=== PATIENT | female | born 1955 | race Caucasian/White ===

== ENCOUNTER 2022-08-06 17:15 | Emergency (ER) | payer MEDICARE, OTHER ==
[2022-08-06] MEDS ORDERED: ORPHENADRINE 60 MG/2 ML (NORFLEX) AMP (ED ONLY) IVP STA (17:29)
[2022-08-06] MEDS ORDERED: KETOROLAC 30 MG/ML VIAL IVP STA (17:29)
[2022-08-06] MEDS ORDERED: ASPIRIN 81 MG CHEW (CHILDREN'S ASA) PO ONE (17:30)
--- NOTE | 2022-08-06 17:38 | ED General ---
General Chief Complaint: General Problems/Pain Stated Complaint: NECK/FACIAL PAIN; CHEST PAIN Nursing Triage Note: Patient has presented to ER with cc of left side neck pain, feels "faint", feels dizzy. Started about 1130 this morning while at work. Source of Information: Patient History of Present Illness Date Seen by Provider: Aug 06, 2022 Time Seen by Provider: 17:18 Initial Comments 67-year-old female presenting with complaints of pain in her left side of her neck, left posterior shoulder and, headache. She states this started around 1130 this morning and has been constant. She was at work stocking shelves at [employer] and started having pain to the left side of her neck and feeling dizzy and like she was going to faint. She states that that improved when she sat down and drink some water. However then when she got back up to try working again she became dizzy, lightheaded and felt faint again. She had gone home and was feeling tired so she took a nap for 2 hours. She states that she never does anything like that. She was recently started on amlodipine for blood pressure on Saturday. She reports calling her doctor in [place] and they told her to get to the emergency department right away. She denies any numbness or weakness in her arms or legs. She has no change in her vision. No difficulty speaking or swallowing. She denies any direct trauma to her neck or head. She has not taken anything for pain prior to arrival. Timing/Duration: 4-6 Hours Severity: Severe Modifying Factors: worse with Movement Associated Systoms: No Chest Pain, No Cough, No Diaphoresis, No Fever/Chills; Headaches; No Loss of Appetite, No Malaise, No Nausea/Vomiting, No Rash, No Seizure; Shortness of Air; No Syncope, No Weakness Allergies and Home Medications Allergies Coded Allergies: codeine (Verified Allergy, Unknown, 08/06/22) penicillin V (Verified Allergy, Unknown, 08/06/22) Patient Home Medication List Home Medication List Reviewed: Yes Ibuprofen (Ibuprofen) 600 Mg Tablet, 600 MG PO Q8H PRN for pain/inflammation Prescribed by: SUDHAKAR OLIVIER on 08/06/221843 Methocarbamol (Methocarbamol) 750 Mg Tablet, 750 MG PO Q8H PRN for muscle spasm/pain Prescribed by: SUDHAKAR OLIVIER on 08/06/221843 Review of Systems Review of Systems Constitutional: No chills, No diaphoresis; dizziness; No fever EENTM: no symptoms reported Respiratory: short of breath; No stridor, No wheezing Cardiovascular: No chest pain, No palpitations Gastrointestinal: No abdominal pain, No nausea, No vomiting Genitourinary: No dysuria Musculoskeletal: see HPI Skin: No change in color, No rash Psychiatric/Neurological: Anxiety, Headache; Denies Numbness, Denies P aresthesia, Denies Weakness Hematologic/Lymphatic: Denies Blood Clots Past [id number]-[id number] Hx Patient Social History Tobacco Use?: No Use of E-Cig and/or Vaping dev: No Substance use?: No Alcohol Use?: No Past Medical History Surgery/Hospitalization HX: hypertension, osteoarthritis, constipation, low vitamin D Physical Exam Vital Signs Vital Signs - First Documented 08/06/22 08/06/22 17:24 18:47 Temp 36.2 Pulse 79 Resp 18 B/P (MAP) 88/ Pulse Ox 97 O2 Delivery Room Air Capillary Refill : Height, Weight, BMI Height: '" Weight: lbs. oz. kg; BMI Method: General Appearance: Anxious (tearful at times complaining of pain to left neck/shoulder) HEENT: PERRL/EOMI, Normal ENT Inspection, Pharynx Normal, Moist Mucous Membranes Neck: Full Range of Motion, Supple, Tender Lateral (left side of neck tender to palpation. no pain over vertebral bodies) Respiratory: Chest Non Tender, Lungs Clear, Normal Breath Sounds, No Accessory Muscle Use, No Respiratory Distress Cardiovascular: Regular Rate, Rhythm, No Murmur, Normal Peripheral Pulses Gastrointestinal: Normal Bowel Sounds, No Pulsatile Mass, Non Tender, Soft Rectal: Deferred Extremity: Normal Capillary Refill, Normal Inspection, Normal Range of Motion, Non Tender, No Calf Tenderness, No Pedal Edema Neurologic/Psychiatric: Alert, Oriented x3, No Motor/Sensory Deficits, hand ii thermal cutter II- XII Norm as Tested, Other (anxious) Skin: Normal Color, Warm/Dry; No Rash Progress/Results/Core Measures Suspected Sepsis SIRS Temperature: Pulse: 79 Respiratory Rate: Laboratory Tests 08/06/22 17:21: White Blood Count 8.5 Blood Pressure 88 / Mean: Laboratory Tests 08/06/22 17:21: Creatinine 0.97, INR Comment 1.0, Platelet Count 228, Total Bilirubin 0.4 Results/Orders Lab Results Laboratory Tests Test 08/06/22 17:21 Range/Units White Blood Count 8.5 4.3-11.0 10^3/uL Red Blood Count 4.88 3.80-5.11 10^6/uL Hemoglobin 15.0 11.5-16.0 g/dL Hematocrit 45 35-52 % Mean Corpuscular Volume 91 80-99 fL Mean Corpuscular Hemoglobin 31 25-34 pg Mean Corpuscular Hemoglobin Concent 34 32-36 g/dL Red Cell Distribution Width 12.4 10.0-14.5 % Platelet Count 228 130-400 10^3/uL Mean Platelet Volume 9.8 9.0-12.2 fL Immature Granulocyte % (Auto) 1 % Neutrophils (%) (Auto) 59 42-75 % Lymphocytes (%) (Auto) 31 12-44 % Monocytes (%) (Auto) 8 0-12 % Eosinophils (%) (Auto) 1 0-10 % Basophils (%) (Auto) 1 0-10 % Neutrophils # (Auto) 5.0 1.8-7.8 10^3/uL Lymphocytes # (Auto) 2.7 1.0-4.0 10^3/uL Monocytes # (Auto) 0.6 0.0-1.0 10^3/uL Eosinophils # (Auto) 0.1 0.0-0.3 10^3/uL Basophils # (Auto) 0.1 0.0-0.1 10^3/uL Immature Granulocyte # (Auto) 0.0 0.0-0.1 10^3/uL Prothrombin Time 13.5 12.2-14.7 SEC INR Comment 1.0 0.8-1.4 Activated Partial Thromboplast Time 24 24-35 SEC Sodium Level 140 135-145 MMOL/L Potassium Level 4.3 3.6-5.0 MMOL/L Chloride Level 101 98-107 MMOL/L Carbon Dioxide Level 25 21-32 MMOL/L Anion Gap 14 5-14 MMOL/L Blood Urea Nitrogen 18 7-18 MG/DL Creatinine 0.97 0.60-1.30 MG/DL Estimat Glomerular Filtration Rate 63 BUN/Creatinine Ratio 19 Glucose Level 109 H 70-105 MG/DL Calcium Level 9.9 8.5-10.1 MG/DL Corrected Calcium 9.6 8.5-10.1 MG/DL Magnesium Level 1.9 1.6-2.4 MG/DL Total Bilirubin 0.4 0.1-1.0 MG/DL Aspartate Amino Transf (AST/SGOT) 13 5-34 U/L Alanine Aminotransferase (ALT/SGPT) 9 0-55 U/L Alkaline Phosphatase 81 40-136 U/L Troponin I < 0.30 <0.30 NG/ML Pro-B-Type Natriuretic Peptide 240.7 H <125.0 PG/ML Total Protein 6.9 6.4-8.2 GM/DL Albumin 4.4 3.2-4.5 GM/DL Lipase 118 H 8-78 U/L My Orders Orders - SUDHAKAR OLIVIER MD Cbc With Automated Diff (08/06/22:) Magnesium (08/06/22:29) Chest 1 View Ap/Pa Only (08/06/22:29) Ekg Tracing (08/06/22:) Comprehensive Metabolic Panel (08/06/22:) Protime With Inr (08/06/22:) Partial Thromboplastin Time (08/06/22:29) O2 (08/06/22:) Monitor-Rhythm Ecg Trace Only (08/06/22:29) Aspirin Chewable Tablet (Baby Aspirin Ch (08/06/22 17:30) Ed Iv/Invasive Line Start (08/06/22:29) Lipase (08/06/22:29) Troponin I Fs (08/06/22:29) Probnp Fs (08/06/22:29) Ct Head/Cervical Spine Wo (08/06/22:29) Ketorolac Injection (Toradol Injection) (08/06/22:29) Orphenadrine Inj (Ed Only) (Norflex Inje (08/06/22:29) Medications Given in ED Current Medications Medications Dose Ordered Sig/Amber Route Start Time Stop Time Status Last Admin Dose Admin Aspirin 324 mg ONCE ONCE PO 08/06/22 17:30 08/06/22 17:32 DC 08/06/22 17:34 324 MG Vital Signs/I&O 08/06/22 08/06/22 17:24 18:47 Temp 36.2 Pulse 79 79 Resp 18 B/P (MAP) 88/ 167/88 Pulse Ox 97 97 O2 Delivery Room Air Room Air Capillary Refill : Progress Note #1: Progress Note Obtain electrocardiogram with her complaint of pain into the left neck and headache. Check basic labs including cardiac enzymes to look for signs of acute coronary syndrome, myocardial infarction, electrolyte imbalance, infection, anemia. Chest x-ray to look for acute abnormality in her lungs. CT scan of her head and cervical spine looking for signs of bleeding, mass, stroke, skull f racture, cervical spine fracture. Since she does have tenderness to palpation to the muscles on the left side of her neck and left trapezius we will order Toradol and Norflex. Since she was saying that the pain was in her shoulder and upper part of her left chest will administer 324 mg of aspirin. Progress Note #2: Progress Note Labs are all stable without acute significant abnormality. Her chemistry panel did not show acute significant abnormality. She had normal cardiac enzymes without elevation of her troponin. Since her pain started at 1130 this morning and has been constant I would expect by now she should have had an elevated troponin if this was a myocardial infarction. Chest x-ray was showing elevated hemidiaphragm with atelectasis and rounded densities in left lower and mid lung. With no prior images for comparison advised to follow up for comparison and to see stability. CT scan of the head and cervical spine did not show acute intracranial abnormality or acute fracture/dislocation of cervical spine. BP improved as pt rested in room and had treatment here. Will reassure pt and encourage continued medicine for muscle spasm and inflammation. Check back with pcp for continued symptoms or worsening problems. ECG Initial ECG Impression Date: Aug 06, 2022 Initial ECG Impression Time: 17:32 Initial ECG Rate: 76 Initial ECG Rhythm: Normal Sinus Initial ECG Comparisson: No Previous ECG Available Comment Normal sinus rhythm with a rate of 76 bpm. She does have occasional PVC. OH interval [address] elevation. QT interval 362 ms with a QTc interval 393 ms. There is no prior tracing available for comparison. I Personally reviewed and interpreted the electrocardiogram. Diagnostic Imaging Diagonstic Imaging: Xray Plain Films/CT/US/NM/MRI: chest Comments [facility] [place], [place] NAME: AMIRA BIRDRA [facility] REC#: [id number] PT STATUS: REG ER : 1955 PHYSICIAN: SUDHAKAR OLIVIER MD ADMIT DATE: 08/06/22/ER FS Signed Date of Exam:08/06/22 CHEST 1 VIEW AP/PA ONLY INDICATION: Shortness of air. EXAMINATION: Chest 08/06/2022 FINDINGS: Single view chest. There is marked elevation of the left hemidiaphragm with adjacent atelectasis at the left lung base. No effusions. No pneumothorax. Heart unremarkable. Pulmonary vasculature normal. There are small rounded densities in the left mid and lower lung nonspecific. IMPRESSION: 1. Elevated left hemidiaphragm with adjacent atelectasis. 2. Nonspecific rounded densities in the left mid and lower lung. Given no priors available for comparison, follow-up is recommended to assure stability. Dictated by: Dictated on workstation # [id number] Dict: 08/06/221812 Trans: 08/06/221827 [id number] Interpreted by: STACI RODRIGUEZ MD Electronically signed by: STACI RODRIGUEZ MD 08/06/221827 Reviewed: Reviewed by Mi Diagonstic Imaging: CT Plain Films/CT/US/NM/MRI: c-spine, head Comments [facility] [place] NAME: BUBBA BIRD [facility] REC#: [id number] PT STATUS: REG ER : 1955 PHYSICIAN: SUDHAKAR OLIVIER MD ADMIT DATE: 08/06/22/ER FS Signed Date of Exam:08/06/22 CT HEAD/CERVICAL SPINE WO EXAMINATION: CT brain and CT cervical spine, 08/06/2022. TECHNIQUE: Multiple contiguous axial images were obtained through the brain and cervical spine without the use of intravenous contrast. Sagittal and coronal reformations through the cervical spine were then performed. Auto Exposure Controls were utilized during the CT exam to meet ALARA standards for radiation dose reduction. INDICATION: Headache and pain radiating down the left side of the neck into the shoulder. Symptoms since earlier today. History of epilepsy as an infant. BRAIN: FINDINGS: There is no evidence for acute hemorrhage or infarct. There is no mass, mass effect, midline shift or hydrocephalus. The paranasal sinuses and mastoid air cells demonstrate no acute abnormality. IMPRESSION: No acute intracranial process. CT CERVICAL SPINE: FINDINGS: There is normal height and alignment of the vertebral bodies. No fractures or subluxations appreciated. The lung apices are clear. The prevertebral soft tissues are unremarkable. IMPRESSION: 1. No acute process in the cervical spine. Dictated by: Dictated on workstation # [id number] Dict: 08/06/221802 Trans: 08/06/221828 [id number] Interpreted by: STACI RODRIGUEZ MD Electronically signed by: STACI RODRIGUEZ MD 08/06/221828 Reviewed: Reviewed by Me Departure Impression Primary Impression: Strain of sternocleidomastoid muscle Qualified Codes: S16.1XXA - Strain of muscle, fascia and tendon at neck level, initial encounter Additional Impressions: Strain of left trapezius muscle Qualified Codes: S46.812A - Strain of other muscles, fascia and tendons at shoulder and upper arm level, left arm, initial encounter Elevated blood pressure reading with diagnosis of hypertension Disposition: HOME, SELF-CARE Condition: Stable Departure-Patient Inst. Decision time for Depature: 18:42 Referrals: [facility] [place] Patient Instructions: Muscle Strain ED, Neck Pain ED, Using Cold for Pain Add. Discharge Instructions: Stay well hydrated and drink plenty of water. Continue on your regular medicines. Take muscle relaxer to help with muscle pain and spasms on left side of neck and shoulder. May apply ice 15-20 minutes every few hours as needed for pain. Check back with primary care provider for worsening symptoms or more problems/concerns. All discharge instructions reviewed with patient and/or family. Voiced understanding. Scripts Methocarbamol (Methocarbamol) 750 Mg Tablet 750 MG PO Q8H PRN for muscle spasm/pain for 7 Days, #21 TAB 0 Refills Prov: SUDHAKAR OLIVIER MD 08/06/22 Ibuprofen (Ibuprofen) 600 Mg Tablet 600 MG PO Q8H PRN for pain/inflammation for 7 Days, #21 TAB 0 Refills Prov: SUDHAKAR OLIVIER MD 08/06/22 SUDHAKAR OLIVIER MD Aug 06, 2022 17:38
[2022-08-06 17:50] LABS: BASOPHILS # (AUTO) 0.1 10^3/uL (0.0-0.1); BASOPHILS % (AUTO) 1 % (0-10); EOSINOPHILS # (AUTO) 0.1 10^3/uL (0.0-0.3); EOSINOPHILS % (AUTO) 1 % (0-10); HEMATOCRIT 45 % (35-52); LYMPHOCYTES # (AUTO) 2.7 10^3/uL (1.0-4.0); LYMPHOCYTES % (AUTO) 31 % (12-44); MEAN CORPUSCULAR HEMOGLOBIN 31 pg (25-34); MEAN CORPUSCULAR HGB CONC 34 g/dL (32-36); MEAN CORPUSCULAR VOLUME 91 fL (80-99); MEAN PLATELET VOLUME 9.8 fL (9.0-12.2); MONOCYTES # (AUTO) 0.6 10^3/uL (0.0-1.0); MONOCYTES % (AUTO) 8 % (0-12); NEUTROPHILS % (AUTO) 59 % (42-75); PLATELET COUNT 228 10^3/uL (130-400); WHITE BLOOD COUNT 8.5 10^3/uL (4.3-11.0)
[2022-08-06 18:00] LABS: PROTHROMBIN TIME PATIENT 13.5 SEC (12.2-14.7)
[2022-08-06 18:05] LABS: ALBUMIN 4.4 GM/DL (3.2-4.5); BILIRUBIN,TOTAL 0.4 MG/DL (0.1-1.0); CALCIUM 9.9 MG/DL (8.5-10.1); CREATININE SERUM 0.97 MG/DL (0.60-1.30); MAGNESIUM 1.9 MG/DL (1.6-2.4); POTASSIUM 4.3 MMOL/L (3.6-5.0); TOTAL PROTEIN 6.9 GM/DL (6.4-8.2)
--- NOTE | 2022-08-06 18:13 | Diagnostic Imaging Report ---
EXAMINATION: CT brain and CT cervical spine, 08/06/2022. TECHNIQUE: Multiple contiguous axial images were obtained through the brain and cervical spine without the use of intravenous contrast. Sagittal and coronal reformations through the cervical spine were then performed. Auto Exposure Controls were utilized during the CT exam to meet ALARA standards for radiation dose reduction. INDICATION: Headache and pain radiating down the left side of the neck into the shoulder. Symptoms since earlier today. History of epilepsy as an infant. BRAIN: FINDINGS: There is no evidence for acute hemorrhage or infarct. There is no mass, mass effect, midline shift or hydrocephalus. The paranasal sinuses and mastoid air cells demonstrate no acute abnormality. IMPRESSION: No acute intracranial process. CT CERVICAL SPINE: FINDINGS: There is normal height and alignment of the vertebral bodies. No fractures or subluxations appreciated. The lung apices are clear. The prevertebral soft tissues are unremarkable. IMPRESSION: 1. No acute process in the cervical spine. Dictated by: Dictated on workstation # [id number]
--- NOTE | 2022-08-06 18:17 | Diagnostic Imaging Report ---
INDICATION: Shortness of air. EXAMINATION: Chest 08/06/2022 FINDINGS: Single view chest. There is marked elevation of the left hemidiaphragm with adjacent atelectasis at the left lung base. No effusions. No pneumothorax. Heart unremarkable. Pulmonary vasculature normal. There are small rounded densities in the left mid and lower lung nonspecific. IMPRESSION: 1. Elevated left hemidiaphragm with adjacent atelectasis. 2. Nonspecific rounded densities in the left mid and lower lung. Given no priors available for comparison, follow-up is recommended to assure stability. Dictated by: Dictated on workstation # [id number]
[2022-08-06] MEDS ORDERED: IBUP-1773 PO (18:44)
[2022-08-06] MEDS ORDERED: METH-732 PO (18:44)
[2022-08-06 18:47] VITALS: BP 167/88
== END 2022-08-06 18:52 | disposition home or self-care (01) ==
LOC: ER FS 17:18
DX: S16.1XXA Strain of muscle, fascia and tendon at neck level, initial encounter (principal); S46.812A Strain of other muscles, fascia and tendons at shoulder and upper arm level, left arm, initial encounter; I10 Essential (primary) hypertension; X58.XXXA Exposure to other specified factors, initial encounter; Y92.59 Other trade areas as the place of occurrence of the external cause; Y99.0 Civilian activity done for income or pay
CPT/HCPCS: 36415; 70450; 71045; 72125; 80053; 83690; 83735; 83880; 84484; 85025; 85610; 85730; 93005; 93041